=== PATIENT | female | born 1990 | race Caucasian/White ===

== ENCOUNTER → 2021-09-20 | Outpatient (CLI) | payer OTHER ==
[~2021-09-20] MED LIST: AMOXICILLIN500 M1 PO; AMOXICILLIN500 MG PO; B COMPLEX1 EACH PO; BUPROPION XL300 MG PO; BUSPIRONE HCL15 MG PO; CLEOCIN HCL300 MG PO; JOLESSA 0.15 M1 EACH PO; LATUDA20 MG PO; NORCO 5-325 TA1 EACH PO; OMNICEF 300 MG300 MG PO; PROPRANOLOL HCL80 MG PO; PROTONIX 40 MG40 M1 PO; ZYRTEC10 MG PO
== END ==
LOC: US 14:26
DX: N91.2 Amenorrhea, unspecified (principal)
CPT/HCPCS: 76830; 76856